=== PATIENT | female | born 1995 | race Caucasian/White ===

== ENCOUNTER 2017-07-25 10:35 | Emergency (ER) | payer BC ==
[~2017-07-25] VITALS: Ht 162.6 cm; Wt 57.0 kg
[2017-07-25] MEDS ORDERED: DEXT5TAB15 PO (10:42)
[2017-07-25] MEDS ORDERED: SODIUM CHLORIDE 0.9% 1,000 ML IV SCH (11:25)
[2017-07-25] MEDS ORDERED: ONDANSETRON HCL 4MG/2ML VIAL IV ONE (11:30)
[2017-07-25] MEDS ORDERED: MECLIZINE 25MG TABLET PO ONE (11:30)
[2017-07-25] MEDS ORDERED: LORAZEPAM 2MG/ML CPJ IV ONE (11:30)
[2017-07-25 11:45] LABS: BASOPHILS % 0.4 % (0.0-2.0); EOSINOPHILS % 0.1 % (0.0-5.0); HEMATOCRIT. 38.7 % (36.0-48.0); HEMOGLOBIN. 13.6 g/dL (12.0-16.0); LYMPHOCYTES % 10.8 % (20.0-50.0); MEAN CORPUSCULAR HEMOGLOBIN 31.3 pg (28.0-32.0); MEAN CORPUSCULAR VOLUME 89.2 fL (81.0-99.0); MEAN PLATELET VOLUME 7.4 fl (7.4-10.4); MONOCYTES % 3.7 % (2.0-8.0); PLATELET 313 x1000/uL (130-400); RED BLOOD CELL COUNT 4.34 mill/uL (4.2-5.4); RED CELL DISTRIBUTION WIDTH 12.5 % (11.6-14.6)
[2017-07-25 11:51] LABS: CHLORIDE 104 mEq/L (98-107)
[2017-07-25 12:52] LABS: HCG SCREEN NEGATIVE
[2017-07-25 15:20] VITALS: BP 120/68
== END 2017-07-25 16:15 | disposition home or self-care (01) ==
LOC: ER 10:54
DX: T75.3XXA Motion sickness, initial encounter (principal); E86.0 Dehydration; F90.9 Attention-deficit hyperactivity disorder, unspecified type; F12.10 Cannabis abuse, uncomplicated; Z98.890 Other specified postprocedural states; Y92.813 Airplane as the place of occurrence of the external cause; Y99.8 Other external cause status
CPT/HCPCS: 36415; 80053; 84703; 85025; 93005; 96374; 99285; J2405; J7030; Z7610; J8597